=== PATIENT | male | born 1960 | race Caucasian/White ===

== ENCOUNTER 2025-05-14 23:25 | Emergency (ER) | payer OTHER, MEDICARE, MEDICAID ==
[~2025-05-14] VITALS: Ht 175.3 cm; Wt 73.0 kg
[2025-05-14 23:26] VITALS: BP 148/90; PULSE 78; RESP 18; TEMP 36.6; O2SAT 98
[2025-05-15 01:00] VITALS: TEMP 97.8
[2025-05-15] MEDS: ACETAMINOPHEN 500MG TABLET PO ONE (01:00)
[2025-05-15] MEDS: BACITRACIN ZINC OINT UDPKT TOP ONE (01:01)
[2025-05-15] MEDS: TETANUS, DIPHTHERIA, PERTUSSIS VAC/PF 0.5ML (>10YR OLD) IM ONE (01:10)
[2025-05-15] MEDS ORDERED: IBUP-1455 MT (01:31)
[2025-05-15] MEDS ORDERED: BO1 TP (01:31)
== END 2025-05-15 01:40 | disposition left against medical advice (07) ==
LOC: ER 23:25
DX: S60.221A Contusion of right hand, initial encounter (principal); S40.012A Contusion of left shoulder, initial encounter; S09.90XA Unspecified injury of head, initial encounter; V47.5XXA Car driver injured in collision with fixed or stationary object in traffic accident, initial encounter; Y93.89 Activity, other specified; Y92.410 Unspecified street and highway as the place of occurrence of the external cause; Y99.8 Other external cause status
CPT/HCPCS: 29125; 73030; 73130; 90471; 90715; 99285